=== PATIENT | female | born 1980 ===

== ENCOUNTER 2018-10-17 23:22 | Emergency (ER) | payer OTHER ==
[2018-10-17 23:43] VITALS: RESP 16; O2SAT 100
[2018-10-18 00:46] LABS: BASO # 0.1 K/uL (0.0-0.2); BASO % 0.6 % (0.0-2.0); EOS # 0.1 K/uL (0.0-0.7); EOS % 1.3 % (0.0-4.0); HEMOGLOBIN 13.9 g/dL (11.0-16.0); LYMPH # 1.7 K/uL (1.0-4.3); LYMPH % 19.2 % (20.0-40.0); MEAN CELL VOLUME 90.2 fL (81.0-99.0); MEAN CORPUSCULAR HEMOGLOBIN 30.1 pg (27.0-31.0); MEAN CORPUSCULAR HGB CONC 33.3 g/dL (33.0-37.0); MONO # 0.7 K/uL (0.0-0.8); MONO % 7.7 % (0.0-10.0); NEUT # 6.3 K/uL (1.8-7.0); NEUT % 71.2 % (50.0-75.0); RBC 4.61 Mil/uL (3.80-5.20); RED CELL DISTRIBUTION WIDTH 13.7 % (11.5-14.5); WHITE BLOOD COUNT 8.8 K/uL (4.8-10.8)
[2018-10-18 00:47] LABS: SQUAMOUS EPITHIAL 1 /hpf (0-5); URINE BACTERIA RARE (<OCC); URINE BILIRUBIN NEGATIVE (NEGATIVE); URINE CLARITY Clear (Clear); URINE COLOR Colorless (YELLOW); URINE GLUCOSE (UA) NORMAL (Normal); URINE LEUKOCYTE ESTERASE NEG Leu/uL (Negative); URINE PROTEIN NEGATIVE (NEGATIVE); URINE UROBILINOGEN NORMAL mg/dL (0.2-1.0)
[2018-10-18 00:59] LABS: ALB/GLOB RATIO 1.4 (1.0-2.1); ALBUMIN 4.1 g/dL (3.5-5.0); ALT/SGPT 22 U/L (9-52); AST/SGOT 28 U/L (14-36); BLOOD UREA NITROGEN 12 mg/dL (7-17); CALCIUM 8.8 mg/dl (8.6-10.4); GFR NON-AFRICAN AMERICAN > 60
[2018-10-18 01:15] LABS: URINE BLOOD NEGATIVE (NEGATIVE)
--- NOTE | 2018-10-18 01:56 | C.PDOC ---
History Of Present Illness 38 year old female (10 weeks ) presents to the emergency department status-post abnormal vaginal bleeding prior to arrival. Patient states that at 10PM she was sitting on the toilet and she noticed the whole toilet bowl was r ed. She states that she went to wipe and noticed a clot. She states her LMP was 07-30-18. Patient states when she urinated in the ED to provide sample she did not see any blood. Patient denies abdominal pain, medical problems, allergies, drug use, cramping, and dysuria. Chief Complaint (Nursing): Female Genitourinary History Per: Patient History/Exam Limitations: no limitations Onset/Duration Of Symptoms: Hrs Current Symptoms Are (Timing): Still Present Quality Of Discomfort: denies: "Pain" Associated Symptoms: Other (abnormal vaginal bleeding) Last Menstral Period: 07-30-18 Past Medical History Reviewed: Historical Data, Nursing Documentation, Vital Signs Vital Signs: Last Vital Signs Temp 99.1 F 10/17/18 23:36 Pulse 77 10/17/18 23:36 Resp 16 10/17/18 23:36 BP 122/77 10/17/18 23:36 Pulse Ox 100 10/17/18 23:36 - Medical History PMH: No Chronic Diseases Surgical History: No Surg Hx Family History: States: No Known Family Hx - Social History Hx Tobacco Use: No Hx Alcohol Use: No Hx Substance Use: No - Immunization History Hx Influenza Vaccination: No Hx Pneumococcal Vaccination: No Review Of Systems Except As Marked, All Systems Reviewed And Found Negative. Constitutional: Negative for: Fever, Chills Cardiovascular: Negative for: Chest Pain Respiratory: Negative for: Cough, Shortness of Breath Gastrointestinal: Negative for: Nausea, Vomiting, Abdominal Pain Genitourinary: Positive for: Vaginal Bleeding. Negative for: Dysuria Neurological: Negative for: Weakness, Numbness Physical Exam - Physical Exam Appears: Non-toxic, No Acute Distress Skin: Normal Color, Warm, Dry Head: Atraumatic, Normacephalic Eye(s): bilateral: Normal Inspection, PERRL, EOMI Nose: Normal Oral Mucosa: Moist Neck: Normal, Supple Chest: Symmetrical, No Tenderness Cardiovascular: Rhythm Regular, No Murmur Respiratory: Normal Breath Sounds, No Rales, No Rhonchi, No Wheezing Gastrointestinal/Abdominal: Soft, No Tenderness, No Guarding, No Rebound Extremity: Normal ROM Neurological/Psych: Oriented x3, Normal Speech, Normal Cognition ED Course And Treatment - Laboratory Results Result Diagrams: 10/18/18 00:38 10/18/18 00:38 Lab Results: Total Bilirubin 0.4 mg/dL (0.2-1.3) 10/18/18 00:38 AST 28 U/L (14-36) 10/18/18 00:38 ALT 22 U/L (9-52) 10/18/18 00:38 Alkaline Phosphatase 51 U/L (38-126) 10/18/18 00:38 Total Protein 7.1 g/dL (6.3-8.3) 10/18/18 00:38 Albumin 4.1 g/dL (3.5-5.0) 10/18/18 00:38 Globulin 2.9 gm/dL (2.2-3.9) 10/18/18 00:38 Albumin/Globulin Ratio 1.4 (1.0-2.1) 10/18/18 00:38 Urine Color Colorless (YELLOW) 10/18/18 00:38 Urine Clarity Clear (Clear) 10/18/18 00:38 Urine pH 6.0 (5.0-8.0) 10/18/18 00:38 Ur Specific [place] 1.004 (1.003-1.030) 10/18/18 00:38 Urine Protein Negative mg/dL (NEGATIVE) 10/18/18 00:38 Urine Glucose (UA) Normal mg/dL (Normal) 10/18/18 00:38 Urine Ketones Negative mg/dL (NEGATIVE) 10/18/18 00:38 Urine Blood Negative (NEGATIVE) 10/18/18 00:38 Urine Nitrate Negative (NEGATIVE) 10/18/18 00:38 Urine Bilirubin Negative (NEGATIVE) 10/18/18 00:38 Urine Urobilinogen Normal mg/dL (0.2-1.0) 10/18/18 00:38 Ur Leukocyte Esterase Neg Kia/uL (Negative) 10/18/18 00:38 Urine WBC (Auto) < 1 /hpf (0-5) 10/18/18 00:38 Urine RBC (Auto) < 1 /hpf (0-3) 10/18/18 00:38 Ur Squamous Epith Cells 1 /hpf (0-5) 10/18/18 00:38 Urine Bacteria Rare (<OCC) 10/18/18 00:38 Beta HCG, Quant 74647.00 mIU/ML 10/18/18 00:38 O2 Sat by Pulse Oximetry: 100 (RA) Pulse Ox Interpretation: Normal - CT Scan/US US Other Rad Studies (CT/US): Read By Radiologist, Radiology Report Reviewed CT/US Interpretation: Impression: Single, live intrauterine gestation. Subchorionic hemorrhage. Medical Decision Making Medical Decision Making: Plan: Blood Bank Type and Screen Beta-HCG Quantitative CBC Urinalysis US US Transvag Disposition Counseled Patient/Family Regarding: Studies Performed, Diagnosis, Need For Followup - Disposition Referrals: Judd Baca MD [Medical Doctor] - Disposition: HOME/ ROUTINE Disposition Time: 03:09 Condition: STABLE Instructions: Threatened Miscarriage (DC) Forms: [employer] ([place]), General Discharge Instructions - POA Present On Arrival: None - Clinical Impression Clinical Impression: Threatened miscarriage in early - Scribe Statement The provider has reviewed the documentation as recorded by the Scribe (Dickson Dias) Provider Attestation: All medical record entries made by the Scribe were at my direction and personally dictated by me. I have reviewed the chart and agree that the record accurately reflects my personal performance of the history, physical exam, medical decision making, and the department course for this patient. I have also personally directed, reviewed, and agree with the discharge instructions and dis position.
[2018-10-18 02:53] VITALS: BP 114/68; PULSE 82; TEMP 98.2
--- NOTE | 2018-10-18 17:40 | US ---
Date of service: 10/18/2018 PROCEDURE: OB Pelvic Ultrasound HISTORY: vaginal bleeding 07/30/2018 COMPARISON: None available. FINDINGS: UTERUS: Gestational sac: Sac diameter 4.8 cm equal to 10 weeks 3 days. [place]-rump length 4.1 cm equal to 11 weeks 0 days. Heart rate: 146 bpm. age (Ultrasound estimated): 10 weeks 5 days Mary-gestational hemorrhage: Small subchorionic hemorrhage measures 1.0 x 1.1 x 1.1 cm. Date of delivery (Ultrasound estimated) : 05/11/2019 Uterus measures 11.8 x 6.8 x 5.3 cm. Normal in size and appearance. CERVIX: Measures 3.6 cm. Long and closed. No cervical abnormality seen. RIGHT OVARY: Measures 4.3 x 2.5 x 4.9 cm. No mass lesion. Normal flow. Simple ovarian cyst, 3.0 x 3.4 x 3.8 cm. LEFT OVARY: Measures 3.6 x 2.7 x 2.9 cm. No solid mass. Normal flow. FREE FLUID: None. OTHER FINDINGS: None. IMPRESSION: Single live intrauterine gestation of approximately 10 weeks 5 days gestational age. Very small subchorionic hemorrhage. Cervix closed. Incidental 3.8 cm simple right ovarian cyst. 2:32 a.m. on 10/18/2018
== END 2018-10-18 03:15 | disposition home or self-care (01) ==
LOC: C.ER 23:22
DX: O20.0 Threatened abortion (principal); Z3A.10 10 weeks gestation of pregnancy